=== PATIENT | male | born 1985 | race Caucasian/White ===

== ENCOUNTER 2019-05-12 23:11 | Inpatient (IN) ==
[~2019-05-12 23:11] MED LIST: CLINDAMYCIN 900 MG/NS 900 MG/50 ML IVPB IV ONE; NS 1,000 ML IV ONE; TORADOL IV ONE; TYLENOL PO ONE; VANCOMYCIN 1 GM/NS 1 GM/250 ML IVPB IV ONE
[2019-05-12] MEDS ORDERED: NS 50 ML ONE (23:22)
[2019-05-12] MEDS ORDERED: CLINDAMYCIN ONE (23:22)
[2019-05-12] MEDS ORDERED: MORPHINE IV ONE (23:24)
[2019-05-12] MEDS ORDERED: ZOFRAN IV ONE (23:24)
[2019-05-12] MEDS ORDERED: XYLOCAINE 1%/EPI 1:100,000 INJ ONE (23:24)
[2019-05-12 23:45] LABS: BILIRUBIN URINE NEGATIVE (NEGATIVE); BLOOD URINE NEGATIVE (NEGATIVE); GLUCOSE URINE NEGATIVE (NEGATIVE); KETONE URINE NEGATIVE (NEGATIVE); LEUKOCYTES URINE TRACE (NEGATIVE); NITRITE URINE NEGATIVE (NEGATIVE); PROTEIN URINE TRACE mg/dL (NEGATIVE); SP GRAVITY URINE 1.005; UROBILINOGEN URINE NORMAL
[2019-05-12 23:45] LABS: INR 1.12
[2019-05-12 23:46] LABS: CLARITY CLEAR (CLEAR); COLOR YELLOW
[2019-05-12 23:46] LABS: BASO# 0.01 X1000 (0.0-0.2); EOS# 0.07 X1000 (0.0-0.7); EOS% 0.3 % (0.0-10.0); HEMATOCRIT 38.8 % (42.0-52.0); HEMOGLOBIN 12.4 g/dL (14.0-18.0); IMM GRAN# 0.08 X1000 (0.0-0.04); IMM GRAN% 0.4 % (0.0-0.5); LYMPH% 3.7 % (20.5-51.1); MCV 90.7 FL (81-99); MONO# 2.57 X1000 (0.11-0.59); MONO% 11.9 % (1.7-9.3); MPV 10.1 FL (7.4-10.4); NEUT# 18.09 X1000 (1.4-6.5); NEUT% 83.7 % (42.2-75.2); PLT 255 X1000 (130-400); PTT 35.1 Seconds (22.3-41.8); RBC 4.28 XMIL (4.7-6.1); RDW 12.4 % (11.5-14.5); WBC 21.62 X1000 (4.8-10.8)
[2019-05-12 23:56] LABS: URINE BACTERIA 2+ /HFP; URINE CAST NONE SEEN /LPF; URINE CRYSTAL NONE SEEN /HPF; URINE EPITHELIAL CELLS <10 /HPF (<10); URINE SOURCE CLEAN CATCH; URINE WBC <10 /HPF (<10); URINE YEAST NONE SEEN /HPF
[2019-05-13 00:01] LABS: BANDS 2 % (0-1); EOS 1 % (1-10); LYMPHS 3 % (21-51); MONO 10 % (1-9); SEGS 84 % (42-75)
[2019-05-13] MEDS ORDERED: XYLOCAINE-MPF 1%/EPI 1:200,000 ONE (00:01)
[2019-05-13 00:02] LABS: POLYCHROM OCCASIONAL
[2019-05-13 00:03] LABS: OVALOCYTES OCCASIONAL; POIKILOCYTOSIS OCCASIONAL
[2019-05-13 00:23] LABS: UR AMPHETAMINES QUAL PRESUMPTIVE POSITIVE (NONE DETECT); UR BARBITUATES QUAL NONE DETECTED (NONE DETECT); UR BENZODIAZEPIN QUAL NONE DETECTED (NONE DETECT); UR CANNABINOIDS QUAL NONE DETECTED (NONE DETECT); UR COCAINE QUAL NONE DETECTED (NONE DETECT); UR METHADONE QUAL NONE DETECTED (NONE DETECT); UR METHAMPHETAMINE QUAL PRESUMPTIVE POSITIVE (NONE DETECT); UR OPIATES QUAL PRESUMPTIVE POSITIVE (NONE DETECT); UR OXYCODONE QUAL NONE DETECTED (NONE DETECT); UR PCP QUAL NONE DETECTED (NONE DETECT); UR PROPOXYPHENE QUAL NONE DETECTED (NONE DETECT); UR TCA QUAL NONE DETECTED (NONE DETECT)
[2019-05-13] MEDS ORDERED: MORPHINE IV ONE (00:28)
[2019-05-13 00:29] LABS: CALCIUM 8.8 mg/dL (8.8-10.2); CREATININE 0.8 mg/dL (0.7-1.2); ESTIMATED GFR > 60
[2019-05-13 00:30] LABS: AGAP 12; ALBUMIN 4.2 g/dL (3.5-5.0); ALKALINE PHOSPHATASE 134 U/L (32-122); BUN 5 mg/dL (8-22); CHLORIDE 94 mmol/L (98-107); COSMO 263; GLUCOSE 118 mg/dL (70-104); POTASSIUM 4.2 mmol/L (3.5-5.1); SODIUM 132 mmol/L (136-145); TCO2 26 mmol/L (25-35); TOTAL PROTEIN 6.8 g/dL (6.3-8.3)
[2019-05-13 00:31] LABS: CK PROFILE 142 U/L (24-204); GOT 58 U/L (10-34); GPT 84 U/L (10-44)
[2019-05-13] MEDS ORDERED: ZOFRAN IV PRN (00:58)
[2019-05-13] MEDS ORDERED: TYLENOL PO PRN (00:58)
[2019-05-13] MEDS ORDERED: VANCOMYCIN IV PER PHARMACY MISC SCH (01:15)
[2019-05-13] MEDS ORDERED: VANCOMYCIN 1 GM/NS 1 GM/250 ML IVPB IV ONE (04:00)
--- NOTE | 2019-05-13 07:51 | Diag Imaging Result Doc PS360 ---
EXAM: CHEST-1 VIEW HISTORY: right breast infection, sepsis TECHNIQUE: PA and Lateral chest x-ray COMPARISON: 07/17/2011 FINDINGS: The cardiomediastinal silhouette is within normal limits. The pulmonary vasculature is not congested. No infiltrate, effusion, or pneumothorax is appreciated. IMPRESSION: No acute cardiopulmonary abnormality is identified. Electronically signed by Mily Strickland 05/13/2019 7:48 AM
--- NOTE | 2019-05-13 07:53 | CONSULTATION ---
DATE OF CONSULTATION: 05/13/2019 HISTORY OF PRESENT ILLNESS: Mr. Deborah Miranda is a 33-year-old white male who was shaving his chest and scraped or cut himself near his right breast 4 to 5 days ago and he has had increasing redness and pain involving his right breast and periareolar area. He presented to the emergency department last night and Dr. Rivero performed an incision and drainage of a periareolar abscess, right breast. He was admitted because of surrounding cellulitis and swelling and we were asked to evaluate him. PHYSICAL EXAMINATION: General: Mr. Miranda is a young, otherwise healthy appearing white male of good weight. He is awake, cooperative without evidence of any neurologic deficit. He is alert oriented. HEENT: No jaundice. No oral lesions. Satisfactory dentition. Lymphatics: No cervical or supraclavicular lymphadenopathy. Cardiovascular: His heart has regular rate. Lungs: Clear to auscultation and percussion bilaterally. Chest: He does have a tattoo on his left chest. His right breast is red and swollen. He has a limited incision in the right periareolar area laterally with packing in the wound. Abdomen: Soft, nontender, without palpable mass. No costovertebral tenderness. Rectal: Exam was not performed. Extremities: He does have palpable peripheral pulses. No peripheral edema. Neurologic: He is alert and oriented x3 and appropriate. LABORATORY DATA: His white blood cell count was 21. Electrolytes are within normal limits. IMPRESSION: Right breast abscess status post shaving of his chest status post incision and drainage in the emergency department by our ED physician. PLAN: He is receiving IV vancomycin which I agree is probably the right antibiotic. He also has IV clindamycin ordered. He needs local wound care which I would use hydrogen peroxide and dry dressing. He can have a regular diet an I want him moving around his room and the halls. We will stop his telemetry. As his swelling and cellulitis resolves right breast, he can be discharged home on p.o. antibiotics with followup in our outpatient offices. cc: Deana Spence MD [facility]
[2019-05-13] MEDS ORDERED: CLINDAMYCIN 600 MG/D5W 600 MG/50 ML IVPB IV SCH (08:00)
[2019-05-13 09:36] LABS: BASO# 0.02 X1000 (0.0-0.2); BASO% 0.1 % (0.0-0.8); EOS# 0.16 X1000 (0.0-0.7); EOS% 0.7 % (0.0-10.0); HEMATOCRIT 39.7 % (42.0-52.0); HEMOGLOBIN 12.4 g/dL (14.0-18.0); IMM GRAN# 0.06 X1000 (0.0-0.04); IMM GRAN% 0.3 % (0.0-0.5); LYMPH# 0.77 X1000 (1.2-3.4); LYMPH% 3.6 % (20.5-51.1); MCH 28.6 PG (27-31); MCHC 31.2 g/dL (33-37); MCV 91.5 FL (81-99); MONO# 2.37 X1000 (0.11-0.59); MPV 9.7 FL (7.4-10.4); NEUT# 18.08 X1000 (1.4-6.5); NEUT% 84.3 % (42.2-75.2); PLT 221 X1000 (130-400); RBC 4.34 XMIL (4.7-6.1); RDW 12.5 % (11.5-14.5); WBC 21.46 X1000 (4.8-10.8)
[2019-05-13 09:54] LABS: AGAP 8; ALBUMIN 3.4 g/dL (3.5-5.0); ALKALINE PHOSPHATASE 112 U/L (32-122); BUN 7 mg/dL (8-22); CALCIUM 8.1 mg/dL (8.8-10.2); CHLORIDE 102 mmol/L (98-107); COSMO 271; CREATININE 0.7 mg/dL (0.7-1.2); ESTIMATED GFR > 60; GLUCOSE 111 mg/dL (70-104); GOT 34 U/L (10-34); GPT 60 U/L (10-44); POTASSIUM 3.9 mmol/L (3.5-5.1); SODIUM 136 mmol/L (136-145); TCO2 26 mmol/L (25-35); TOTAL PROTEIN 5.7 g/dL (6.3-8.3)
[2019-05-13] MEDS: MORPHINE IV PRN (09:55)
[2019-05-13 10:13] LABS: LYMPHS 4 % (21-51); MONO 11 % (1-9); SEGS 85 % (42-75)
[2019-05-13] MEDS: ZOSYN 3.375 GM in NS 50 ML IV SCH ×2 (11:58→17:20)
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
[2019-05-13] MEDS ORDERED: NICODERM PATCH TD SCH (17:30)
[2019-05-13] MEDS ORDERED: VANCOMYCIN 1,550 MG in NS 250 ML IV SCH (18:00)
[2019-05-13 20:38] LABS: HIV ANTIBODY SCREEN SEE COMMENTS
[2019-05-14] MEDS: ZOSYN 3.375 GM in NS 50 ML IV SCH ×3 (00:35→05:24)
[2019-05-14] MEDS: MORPHINE IV PRN ×2 (00:46→09:55)
[2019-05-14] MEDS ORDERED: VANCOMYCIN 1,550 MG in NS 250 ML IV SCH (01:30)
[2019-05-14 06:01] VITALS: BP 107/64
[2019-05-14 06:13] LABS: BASO# 0.02 X1000 (0.0-0.2); BASO% 0.1 % (0.0-0.8); EOS# 0.35 X1000 (0.0-0.7); EOS% 1.8 % (0.0-10.0); HEMATOCRIT 38.8 % (42.0-52.0); HEMOGLOBIN 12.1 g/dL (14.0-18.0); IMM GRAN# 0.05 X1000 (0.0-0.04); IMM GRAN% 0.3 % (0.0-0.5); LYMPH# 1.78 X1000 (1.2-3.4); LYMPH% 9.3 % (20.5-51.1); MCH 28.6 PG (27-31); MCHC 31.2 g/dL (33-37); MCV 91.7 FL (81-99); MONO# 2.02 X1000 (0.11-0.59); MONO% 10.6 % (1.7-9.3); MPV 9.5 FL (7.4-10.4); NEUT# 14.91 X1000 (1.4-6.5); NEUT% 77.9 % (42.2-75.2); PLT 256 X1000 (130-400); RBC 4.23 XMIL (4.7-6.1); RDW 12.4 % (11.5-14.5); WBC 19.13 X1000 (4.8-10.8)
[2019-05-14 06:22] LABS: AGAP 9; ALBUMIN 2.6 g/dL (3.5-5.0); ALKALINE PHOSPHATASE 103 U/L (32-122); BUN 5 mg/dL (8-22); CALCIUM 8.2 mg/dL (8.8-10.2); CHLORIDE 102 mmol/L (98-107); COSMO 272; CREATININE 0.7 mg/dL (0.7-1.2); ESTIMATED GFR > 60; GLUCOSE 122 mg/dL (70-104); GOT 15 U/L (10-34); GPT 38 U/L (10-44); POTASSIUM 3.7 mmol/L (3.5-5.1); SODIUM 137 mmol/L (136-145); TCO2 26 mmol/L (25-35); TOTAL PROTEIN 5.6 g/dL (6.3-8.3)
[2019-05-14] MEDS ORDERED: CLINDAMYCIN 900 MG/D5W 900 MG/50 ML IVPB IV SCH (11:00)
--- NOTE | 2019-05-14 11:15 | PROGRESS NOTE ---
DATE: 05/14/2019 SUBJECTIVE: Patient reports feeling fine. Denies any fever or chills. OBJECTIVE: Vital Signs: Temperature 97.9, heart rate 70, respiratory rate 20, blood pressure 107/64, O2 saturation 100% on room air. General Examination: This is a chronically ill- appearing, 33-year-old, male, lying in bed, in no acute distress. Cardiovascular Examination: S1 and S2 heard. No murmurs, gallops, or rubs. Regular rate and rhythm. Respiratory Examination: Clear bilaterally to auscultation. No work of breathing or using accessory muscles. Also, there is a lesion around the right nipple closer to the axillary side of the nipple, that is draining still some white purulent drainage. Abdomen: Soft. Nontender to palpation. Bowel sounds present. No organomegaly. Extremities: No clubbing, cyanosis, or edema. Peripheral pulses present in both legs. Neurological Examination: The patient is alert and oriented x3. Moves 4 extremities. Laboratory Data: WBC 19.13, hemoglobin 12.1, hematocrit 38.8, platelets 256,000. BMP reveals a glucose of 122. ASSESSMENT AND PLAN: 1. Right breast abscess, status post incision and drainage, secondary to methicillin-resistant Staphylococcus aureus. The patient is on vancomycin for that condition. We have added clindamycin to his current treatment. Dr. Spence from general surgery has evaluated this patient. He recommends medical treatment only. His white cell count continues to be very elevated. Considering his history of drug abuse, I think we have to rule out acute endocarditis. In that regard, I have order an echocardiogram, that is not yet done. We will see the results and we will go from there. So far, blood cultures are negative. The only culture that returned positive was from wound, that was positive for methicillin-resistant Staphylococcus aureus. In any case, we will continue with the same management. 2. Polysubstance abuse. Patient continues to use drugs. According to him, he has used intravenous drugs last time 6 months ago but he continues he report using drugs every time he had an opportunity to do that. The patient is strongly advised to stop using drugs. cc: Martin Parisi MD
[2019-05-14 12:41] LABS: HEPATITIS PROFILE ACUTE SEE COMMENTS
--- NOTE | 2019-05-14 13:22 | ECHO REPORT ---
ORDER DATE: 05/13/2019 INTERPRETING PHYSICIAN: Wilfred Johnson MD. ECHOCARDIOGRAPHIC MEASUREMENTS: 1. Interventricular septum 0.5. 2. Left ventricular posterior wall 0.5. 3. Diastolic diameter 4.6. 4. Left atrium 3.7. 5. Aorta 2.9. FINDINGS: 1. Normal left ventricular cavity size. Estimated ejection fraction of 60 to 65 percent. Mitral valve leaflets are normal. 2. Tricuspid valve was normal. Pulmonic valve was normal. 3. Peak velocity across the aortic valve less than 2 m/sec. There is no aortic stenosis or regurgitation. There is mild mitral regurgitation, mild tricuspid regurgitation. Peak velocity across the tricuspid valve less than 2 m/sec. Peak velocity across the aortic valve less than 2 m/sec. There is no aortic stenosis or regurgitation. 4. There is no pericardial effusion or obvious intracardiac mass or thrombus seen. 5. Would recommend transesophageal echocardiogram to rule out endocarditis if clinically indicated. cc: MD Martin Vivas MD
--- NOTE | 2019-05-14 18:41 | DISCHARGE SUMMARY ---
ADMISSION DATE: 05/13/2019 DISCHARGE DATE: 05/14/2019 This is an A discharge. ADMISSION DIAGNOSES: The patient was admitted to the hospital for the following conditions: 1. Right chest wall abscess. 2. History of methicillin-resistant Staphylococcus aureus infection. 3. Active polysubstance abuse with intravenous heroin in the last few months. HOSPITAL COURSE: In brief, this is a patient who presented to the emergency department complaining of a wound that he has in the chest that he got after he was shaving that area. He had a little cut in that area, noting induration, and that is reason why he came here. In the emergency department I and D was performed, with apparently a copious amount of purulent drainage. That was sent for culture. That returned positive for methicillin-resistant Staphylococcus aureus. Because his white cell count continues to be persistently high despite being on vancomycin and Zosyn, my plan was to do an echocardiogram to rule out acute endocarditis, considering his history of IV drug abuse. He was receiving vancomycin and clindamycin after we confirmed MRSA infection, but unfortunately this patient decided to leave [place] because they said that he was stuck many times here in the hospital to get labs and also to get a new IV access. The patient was advised to stay and he was warned about the risk of leaving the hospital against medical advice, but finally he decided to leave. cc: Martin Parisi MD
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
[2019-05-15 12:53] LABS: HCV BY PCR SEE COMMENTS
== END 2019-05-14 13:14 | disposition left against medical advice (07) | DRG 581 ==
LOC: P.ED 23:11 → P.MEDSURG 05-13 01:26
PROVIDERS: ATTEND Internal Medicine